=== PATIENT | male | born 1945 | race Caucasian/White ===

== ENCOUNTER → 2017-12-31 09:20 | Outpatient (CLI) | payer OTHER ==
--- NOTE | ~2017-12-31 | EC ---
PATIENT:ARLET LANG DATE OF SERVICE: 12/31/17 SEX: M MEDICAL RECORD: [id number] DATE OF : 49 LOCATION:[facility] AGE OF PATIENT: 72 ADMISSION DATE: 12/31/17 REFERRING PHYSICIAN: INTERPRETING PHYSICIAN: LOBO PAN MD ECHOCARDIOGRAM REPORT ECHO CHARGES 4 ECHO COMPLETE Date: 12/31/17 CLINICAL DIAGNOSIS: ISCHEMIC HEART DISEASE ECHOCARDIOGRAPHIC MEASUREMENTS (adult normal given) AC root (d.<3.7cm) 3.2 cm LV Septum d (<1.2 cm> 1.1 cm Valve Excursion 2.0 cm LV Septum (systole) 1.6 cm Left Atria (s.<4.0cm> 3.8 cm LVPW d(<1.2cm) 1.0 cm RV (d.<2.3cm) 2.5 cm LVPW (sytole) 1.9 cm LV diastole(<5.6CM) 6.0 cm MV E-F(>70mm/sec) cm LV systole 3.9 cm LVOT Diameter 1.9 cm MV exc.(>10mm) cm Est.ejection fraction (50-75%) % DOPPLER: LVIT cm/sec A 43.0 cm/sec E 59.0 cm/sec LA cm/sec RVSP 30.3 mmHg LVOT 96.0 cm/sec AOP1/2T m/s Asc. Ao 121 cm/sec RVOT 59.0 cm/sec RA cm/sec PA 101 cm/sec AV Gradient Peak 5.9 mmHg AV Mean 2.8 mmHg AV Area 2.0 cm MV Gradient Peak 2.3 mmHg MV Mean 0.65 mmHg MV Area cm COMMENTS: Bag Printer: Gaby [employer] Technician: 1 Dr. Pan TAPE# PACS Pericardial Effusion N DATE OF SERVICE: 12/31/2017 PROCEDURE: Echocardiogram. FINDINGS: 1. Left ventricular chamber size is mildly dilated. Left ventricular systolic function is mildly reduced, overall ejection fraction estimated at 40%. 2. Left atrium, right atrium, and right ventricle chamber sizes are within normal limits. 3. Valvular structures have normal structure and motion. ECHOCARDIOGRAM REPORT [id number] ARLET LANG 4. Doppler interrogation reveals mild mitral regurgitation, mild tricuspid regurgitation, no other valvular insufficiency or stenosis. Pulmonary systolic pressure is estimated 30 mmHg. 5. No evidence of pericardial effusion or left ventricular thrombus. TRANSINT:[id number] Voice Confirmation ID: [id number] DOCUMENT ID: [id number] LOBO PAN MD at 0924 CC: [id number] DICTATION DATE: 12/31/17 120 RESIN REMOVER: 12/31/17 1211 DEP CLI 12/31/17 [place] [id number] [place] [id number]
== END | disposition home or self-care (01) ==
LOC: D.ECHO 09:20
DX: I25.9 Chronic ischemic heart disease, unspecified (principal)